=== PATIENT | male | born 1995 | race African-American/Black ===

== ENCOUNTER 2017-01-18 16:22 | Emergency (ER) | payer BC ==
[2017-01-18 16:44] VITALS: BP 127/78; PULSE 57; TEMP 98.2; BMI 28.5
--- NOTE | 2017-01-18 16:44 | PDOC ---
Rapid Medical Evaluation Time Seen by Provider: 01/18/17 16:40 Medical Evaluation: 01/18/17 16:41 I have performed a brief in person evaluation of this patient. The patient presents with chief complaint of : left arm feels numb and weak also has pain to left upper gum from a dental apparatus for a couple of days . . no PMHX, left arm numbness since awakening no past medical history . Pertinent PE findings: none, bilateral UE 5/5 strength nv intact I have ordered the following: none The patient will proceed to the ER for further evaluation.
--- NOTE | 2017-01-18 19:27 | PDOC ---
History of Present Illness - General Chief Complaint: Pain Stated Complaint: UPPER TOOTH/GUM PAIN/LT ARM NUMBNESS Time Seen by Provider: 01/18/17 16:40 Past History - Past Medical History Allergies/Adverse Reactions: Allergies Allergy/AdvReac Type Severity Reaction Status Date / Time No Known Allergies Allergy Verified 01/18/17 16:40 Home Medications: Ambulatory Orders Amoxicillin - [Amoxicillin 500mg Capsule -] 500 mg PO BID #14 capsule 01/18/17 Ibuprofen 800 mg PO TID #30 tablet 01/18/17 COPD: No Other medical history: DENIES. - Suicide/Smoking/Psychosocial Hx Smoking History: Never smoked *Physical Exam - Vital Signs Last Vital Signs Temp Pulse Resp BP Pulse Ox 98.2 F 57 L 19 127/78 100 01/18/17 16:41 01/18/17 16:41 01/18/17 16:41 01/18/17 16:41 01/18/17 16:41 *DC/Admit/Observation/Transfer Diagnosis at time of Disposition: Tooth pain, Arm numbness left - Discharge Dispostion Disposition: HOME Condition at time of disposition: Good Admit: No - Referrals Referrals: Bonilla Camilo MD [Staff Physician] - - Patient Instructions Printed Discharge Instructions: DI for Tooth Abscess Additional Instructions: You have gum irritation and L arm numbness. Your arm numbness is most likely due to falling asleep on it while drunk. Drink plenty of fluids including gatorade. You may take ibuprofen as needed for the pain, 800mg three times a day not to exceed 3,000mg. You were given a referral to see an orthopedist if your symptoms do not improve. Your your gum pain, you were prescribed amoxicillin. Please take the medication as prescribed and follow up with your dentist this week, Return to the ED if you have worsening numbness, pain in your arm, or any changes in your symptoms - Post Discharge Activity Forms/Work/School Notes: Back to Work
[2017-01-18] MEDS ORDERED: ONDANSETRON *ODT* 4 MG TABLET SL ONE (19:28)
[2017-01-18] MEDS ORDERED: IBUPROFEN 600 MG TABLET (FP) PO ONE ×2 (19:28→19:33)
[2017-01-18] MEDS ORDERED: ONDANSETRON *ODT* 4 MG TABLET ONE (19:33)
== END 2017-01-18 19:44 | disposition home or self-care (01) ==
LOC: JERFT 16:22
DX: K08.9 Disorder of teeth and supporting structures, unspecified (principal); R20.0 Anesthesia of skin
CPT/HCPCS: 99281-25

== ENCOUNTER 2023-07-14 22:03 | Emergency (ER) | payer BC ==
[2023-07-14 22:10] VITALS: BP 133/69; PULSE 65; RESP 20; TEMP 98.5; BMI 28.4
== END 2023-07-15 00:29 | disposition home or self-care (01) ==
LOC: JER 22:03
DX: R79.9 Abnormal finding of blood chemistry, unspecified (principal)
CPT/HCPCS: 36415; 86695; 86696; 99283-25